=== PATIENT | male | born 2000 | race Caucasian/White ===

== ENCOUNTER 2024-10-08 07:58 | Emergency (ER) | payer SELFPAY ==
[~2024-10-08] VITALS: Ht 167.6 cm; Wt 82.0 kg
[2024-10-08 08:03] VITALS: O2SAT 97
[2024-10-08 08:42] LABS: BASOPHILS % 0.7 % (0.0-2.0); EOSINOPHILS % 2.2 % (0.0-5.0); HEMATOCRIT. 41.6 % (42.0-52.0); HEMOGLOBIN. 13.8 g/dL (14.0-18.0); MEAN CORPUSCULAR HEMOGLOBIN 30.5 pg (28.0-32.0); MEAN CORPUSCULAR HGB CONC 33.2 g/dL (31.0-37.0); MEAN CORPUSCULAR VOLUME 92.1 fL (80.0-94.0); MEAN PLATELET VOLUME 8.7 fl (7.4-10.4); MONOCYTES % 8.4 % (2.0-8.0); NEUTROPHILS % 64.7 % (40.0-76.0); PLATELET 227 x1000/uL (130-400); RED BLOOD CELL COUNT 4.52 mill/uL (4.7-6.1); RED CELL DISTRIBUTION WIDTH 13.3 % (11.6-14.6); WHITE BLOOD COUNT 7.6 x1000/uL (4.5-11.0)
[2024-10-08 08:48] LABS: CHLORIDE 112 mEq/L (98-107); POTASSIUM 4.3 mEq/L (3.5-5.1); SODIUM 144 mEq/L (136-145)
[2024-10-08 08:49] LABS: CALCIUM 8.9 mg/dL (8.7-10.4); CARBON DIOXIDE 29 mEq/L (21-32)
[2024-10-08 08:54] LABS: CREATININE 0.8 mg/dL (0.6-1.3); GLUCOSE 108 mg/dL (70-105); UREA NITROGEN BLOOD 19 mg/dL (9-23)
[2024-10-08 08:55] LABS: ETHANOL BLOOD < 10 mg/dL (<10)
[2024-10-08] MEDS ORDERED: LORAZEPAM 2MG/ML INJ IM ONE (11:00)
[2024-10-08] MEDS: OLANZAPINE 10 MG/VIAL IM ONE ×2 (11:14→20:42)
[2024-10-08] MEDS: LORAZEPAM 2MG/ML UD SYRINGE IM SCH (11:14)
[2024-10-08 18:24] LABS: CLARITY URINE CLEAR (CLEAR); COLOR URINE YELLOW (YELLOW); GLUCOSE URINE NEGATIVE (NEGATIVE); KETONES URINE NEGATIVE (NEGATIVE); LEUKOCYTE ESTERASE URINE NEGATIVE (NEGATIVE); NITRITE URINE NEGATIVE (NEGATIVE); OCCULT BLOOD URINE NEGATIVE (NEGATIVE); PH URINE 5.5 (4.5-8.0); PROTEIN URINE NEGATIVE (NEGATIVE); SPECIFIC GRAVITY URINE 1.032 (1.005-1.030); UROBILINOGEN URINE 0.2 E.U./dL (0.2-1.0)
[2024-10-08 18:36] LABS: *AMPHETAMINES SCREEN URINE NEGATIVE (NEGATIVE); *BARBITURATES SCREEN URINE NEGATIVE (NEGATIVE); *BENZODIAZEPINES SCREEN URINE NEGATIVE (NEGATIVE)
[2024-10-08 18:37] LABS: *COCAINE SCREEN URINE NEGATIVE (NEGATIVE); CANNABINOID URINE SCREEN PRESUMPTIVE POSITIVE (NEGATIVE); ECSTASY MDMA SCREEN URINE NEGATIVE (NEGATIVE); METHADONE URINE SCREEN NEGATIVE (NEGATIVE); OPIATES URINE SCREEN NEGATIVE (NEGATIVE); PHENCYCLIDINE URINE SCREEN NEGATIVE (NEGATIVE)
[2024-10-09] MEDS: HALOPERIDOL LACTATE 5MG/ML VIAL IM ONE (06:50)
[2024-10-09] MEDS: HALOPERIDOL LACTATE 5MG/ML VIAL IM STA (21:19)
[2024-10-10 12:06] VITALS: TEMP 37.1
[2024-10-10 13:33] VITALS: BP 130/61; PULSE 89; RESP 18; O2SAT 97
== END 2024-10-10 14:36 ==
LOC: ER 08:07
DX: R46.2 Strange and inexplicable behavior (principal); K74.60 Unspecified cirrhosis of liver; R41.82 Altered mental status, unspecified; Z79.899 Other long term (current) drug therapy
CPT/HCPCS: 80305; 80048; 81003; 80307; 80329; 80320; 85025; 36415; 70450; 96372; 99285; 87426; J3490; J2060; Z7610; J1630; G0480